=== PATIENT | male | born 1985 | race Caucasian/White ===

== ENCOUNTER 2016-07-07 03:17 | Emergency (ER) | payer SELFPAY ==
[~2016-07-07] VITALS: Ht 170.2 cm; Wt 63.6 kg
[2016-07-07 03:21] VITALS: Ht 170.2 cm; Wt 63.6 kg
--- NOTE | 2016-07-07 03:29 | ERA ---
ER Documentation Chief Complaint Date/Time DATE: 07/07/16 TIME: 03:29 Chief Complaint SUDDEN ONSET (APPROX 30MIN) LEFT FLANK AND TESTICULAR PAIN W/O N/V HPI The patient is a 30-year-old male, presenting to the ER because of sudden onset of left flank pain about an hour prior to arrival, 12/04, radiating down to the left testicle. He denies similar symptoms previously, denies fever, chills, neck pain, chest pain, vomiting, dysuria, diarrhea. He does not drink, smoke a pack a day, smoked marijuana Past medical/surgical history: None ROS All systems reviewed and are negative except as per history of present illness. Medications Home Meds Active Scripts Tamsulosin Hcl* (Flomax*) 0.4 Mg Cap.er.24h, 0.4 MG PO DAILY, #10 CAP Prov:BASSEM PETTIT MD 07/07/16 Hydrocodone/Acetaminophen (Girard 10-325 Tablet) 1 Each Tablet, 1 TAB PO Q6H Y for PAIN, #10 TAB Prov:BASSEM PETTIT MD 07/07/16 Allergies Allergies: Coded Allergies: No Known Drug Allergies (Verified Allergy, Unknown, 07/07/16) PMhx/Soc Medical and Surgical Hx: pt denies Medical Hx, pt denies Surgical Hx Hx Alcohol Use: No Hx Substance Use: Yes (MARIJUANA) Hx Tobacco Use: Yes (DAILY) Smoking Status: Current every day smoker Physical Exam Vitals Vital Signs Date Time Temp Pulse Resp B/P Pulse Ox O2 Delivery O2 Flow Rate FiO2 07/07/16 03:21 95.9 65 18 125/104 100 Physical Exam Const: No acute distress. Head: Atraumatic. Eyes: Normal Conjunctiva. ENT: Normal External Ears, Nose and Mouth. Neck: Full range of motion. No meningismus. Resp: Clear to auscultation bilaterally. Cardio: Regular rate and rhythm, no murmurs. Abd: Soft, non distended, normal bowel sounds, left flank tenderness, no rigidity, rebound, CVA tenderness Skin: No petechiae or rashes. Back: No midline or flank tenderness. Ext: No cyanosis, or edema. Neur: Awake and alert. No focal deficit Psych: Normal Mood and Affect. Genitourinary: Minimal left testicular tenderness Result Diagram: 07/07/16 0345 07/07/16 0345 Results 24 hrs Laboratory Tests Test 07/07/16 03:45 White Blood Count 14.310^3/ul Red Blood Count 4.8510^6/ul Hemoglobin 15.3g/dl Hematocrit 43.2% Mean Corpuscular Volume 89.1fl Mean Corpuscular Hemoglobin 31.5pg Mean Corpuscular Hemoglobin Concent 35.4g/dl Red Cell Distribution Width 11.9% Platelet Count 53877^3/UL Mean Platelet Volume 10.0fl Neutrophils % 52.6% Lymphocytes % 37.6% Monocytes % 6.5% Eosinophils % 2.6% Basophils % 0.3% Nucleated Red Blood Cells % 0.0/100WBC Neutrophils # 7.510^3/ul Lymphocytes # 5.410^3/ul Monocytes # 0.910^3/ul Eosinophils # 0.410^3/ul Basophils # 0.110^3/ul Nucleated Red Blood Cells # 0.010^3/ul Sodium Level 140mmol/L Potassium Level 3.3mmol/L Chloride Level 104mmol/L Carbon Dioxide Level 24mmol/L Anion Gap 15 Blood Urea Nitrogen 19mg/dl Creatinine 0.89mg/dl Glucose Level 127mg/dl Calcium Level 9.6mg/dl Total Bilirubin 1.0mg/dl Direct Bilirubin 0.00mg/dl Indirect Bilirubin 1.0mg/dl Aspartate Amino Transf (AST/SGOT) 17IU/L Alanine Aminotransferase (ALT/SGPT) 29IU/L Alkaline Phosphatase 55IU/L Total Protein 7.4g/dl Albumin 4.4g/dl Globulin 3.00g/dl Albumin/Globulin Ratio 1.46 Lipase 89U/L Current Medications Medications (Trade) Dose Ordered Sig/Michelle Route PRN Reason Start Time Stop Time Status Last Admin Dose Admin Sodium Chloride (NS) 1,000 ml @ 1,000 mls/hr Q1H STAT IV 07/07/16 03:36 07/07/16 04:35 DC 07/07/16 03:42 Hydromorphone HCl (Dilaudid) 1 mg ONCE STAT IV 07/07/16 03:36 07/07/16 03:38 DC 07/07/16 03:41 Ondansetron HCl (Zofran Inj) 4 mg ONCE STAT IV 07/07/16 03:36 07/07/16 03:39 DC 07/07/16 03:41 Hydromorphone HCl (Dilaudid) 1 mg ONCE STAT IV 07/07/16 03:59 07/07/16 04:00 DC 07/07/16 04:03 Procedures/MDM [place] [id number] Radiology Main Line: [phone] DIAGNOSTIC IMAGING REPORT Patient: BONNIE DUQUE : 1985 Age: 30 Sex: M MR #: [id number] DOS: 07/07/16 0336 Ordering MD: BASSEM PETTIT MD Location: E/R Room/Bed: PROCEDURE: ULTRASOUND TESTICULAR CLINICAL INDICATION: 30-year-old male with flank pain. TECHNIQUE: Multiple sonographic images of the scrotal region were obtained utilizing a linear array transducer with grayscale and color-flow and a Doppler imaging. The images were reviewed on a high-resolution PACS workstation. COMPARISON: None. FINDINGS: The right testicle is well visualized and has a normal echotexture. No focal areas of abnormal echogenicity are visualized. The right testicle measures measures 4.4 x 2.3 x 3.1 cm. There is normal color-flow. The right epididymis is visualized and unremarkable in appearance. There is normal color-flow. The left testicle is well visualized and has a normal echotexture. No focal areas abnormal echogenicity are visualized. The left testicle measures measures 4.5 x 2.4 x 3.2 cm. There is normal color-flow. The left epididymis is visualized and is unremarkable in appearance. There is normal color-flow. IMPRESSION: Unremarkable testicular ultrasound. .Tavon Houser MD, Date Time Electronically viewed and signed by .Tavon Houser MD, on 07/07/2016 05:21 .M/ CC: BASSEM PETTIT MD [place] [id number] Radiology Main Line: [phone] DIAGNOSTIC IMAGING REPORT Patient: BONNIE DUQUE : 1985 Age: 30 Sex: M MR #: [id number] [facility] #: [id number] DOS: 07/07/16 0336 Ordering MD: BASSEM PETTIT MD Location: E/R Room/Bed: PROCEDURE: CT ABDOMEN/PELVIS WITHOUT CONTRAST CLINICAL INDICATION: 30-year-old male with abdominal pain. TECHNIQUE: The study was performed utilizing a [email or web address] VCT 64-slice CT scanner. Direct axial sections were obtained through the abdomen and pelvis without the use of intravenous contrast material. Sagittal and coronal reformations were obtained. One or more of the following dose reduction techniques were utilized: automated exposure control, adjustment of the mA and/ or kV according to patient's size or use of iterative reconstruction technique. The images were reviewed on a PACS workstation. CTD/vol = 4.8 mGy; Total Exam DLP = 270.9 mGy-cm. COMPARISON: None. FINDINGS: The lung bases are unremarkable. There is no evidence for significant pleural effusion. The liver has a normal size and contour without focal areas of abnormal density. No intrahepatic nor extrahepatic biliary ductal dilatation is seen. The gallbladder demonstrates no wall thickening nor pericholecystic fluid. No biliary stones are evident. The pancreas is without areas of abnormal attenuation. The spleen is identified and has a normal size without abnormal density. The adrenal glands are unremarkable. The right kidney is without abnormal density, calculi or obstruction. There is mild left-sided hydroureteronephrosis with an obstructing left ureterovesical junction calculus passing into the bladder measuring approximately 3 x 3 mm. The urinary bladder contains urine. There is fecalization of the small bowel with retained stool in the colon without obstruction. The appendix is visualized and is without abnormal thickening or surrounding inflammatory reaction. There is no significant free fluid. The prostate is not enlarged. The aortoiliac vessels are without aneurysmal dilatation. Bilateral L5 pars interarticularis defects are noted. There is mild anterolisthesis of approximately 10% with diffuse L5- S1 disk bulge approximately 7 mm beyond the posterior margin resulting in mild bilateral foraminal stenosis and mild central spinal stenosis. IMPRESSION: 1. Mild left-sided hydroureteronephrosis with an obstructing left ureterovesical junction and 3 x 3 mm calculus. 2. Fecalization of the small bowel and retained stool without gross bowel obstruction. 3. No CT evidence for appendicitis. 4. L5-S1 spondylolisthesis (10%) with diffuse disk bulge. .Tavon Houser MD, Date Time Electronically viewed and signed by .Tavon Houser MD, on 07/07/2016 05:20 .M/ CC: BASSEM PETTIT MD MEDICAL MAKING DECISION: The patient is a 30-year-old male, presenting with acute left ureterolithiasis, acute hypokalemia. He was treated with 1 L amoxicillin for acute clinical dehydration, Dilaudid 1 mg IV 2 for pain and Zofran 4 IV 2 for nausea and potassium chloride 20 mEq p.o. for low potassium with good response. The differential diagnoses considered include but are not limited to cholelithiasis, cholecystitis, cystitis, pancreatitis, hepatitis, gastritis, peptic ulcer disease, gastric ulcer, appendicitis, diverticulitis, cholangitis, choledocholithiasis, partial small bowel obstruction. He is unable to provide a urine specimen Departure Diagnosis: Primary Impression: Ureterolithiasis Additional Impression: Hypokalemia Condition: Good Comments He was discharged with Girard and Flomax I discussed the findings with the patient. I advised the patient to follow-up with the on-call neurologist Dr. Pena In about 1-2 days, sooner if needed and return if any concern. The patient's blood pressure was elevated (>120/80) but appears stable without evidence of hypertension emergency or urgency. The patient was counseled about the risks of hypertension and urged to pursue outpatient monitoring and therapy within a week with their primary care physician. BASSEM PETTIT MD July 07, 2016 03:29
[2016-07-07] MEDS ORDERED: HYDROmorphONE 1 MG/ML SYG IV STA ×2 (03:36→03:59)
[2016-07-07] MEDS ORDERED: SOD CHLORIDE 0.9% 1,000 ML IV STA (03:36)
[2016-07-07] MEDS ORDERED: ONDANSETRON 4 MG INJ IV STA (03:36)
[2016-07-07 04:04] LABS: ADD SCAN DIFF NO
[2016-07-07 04:07] LABS: ABNORMAL IP MESSAGE 1; BASOPHIL # 0.1 10^3/ul (0.0-0.1); BASOPHILS % 0.3 % (0.0-2.0); EOSINOPHILS # 0.4 10^3/ul (0.0-0.5); EOSINOPHILS % 2.6 % (0.0-7.0); HEMATOCRIT 43.2 % (42.0-52.0); HEMOGLOBIN 15.3 g/dl (14.0-18.0); LYMPHOCYTES # 5.4 10^3/ul (0.8-2.9); LYMPHOCYTES % 37.6 % (15.0-51.0); MEAN CORPUSCULAR HEMOGLOBIN 31.5 pg (29.0-33.0); MEAN CORPUSCULAR HGB CONC 35.4 g/dl (32.0-37.0); MEAN CORPUSCULAR VOLUME 89.1 fl (82.0-101.0); MONOCYTE # 0.9 10^3/ul (0.3-0.9); MONOCYTES % 6.5 % (0.0-11.0); NEUTROPHIL # 7.5 10^3/ul (1.6-7.5); NEUTROPHILS % 52.6 % (39.0-77.0); PLATELET COUNT 280 10^3/UL (140-415); RED BLOOD COUNT 4.85 10^6/ul (4.70-6.10); RED CELL DISTRIBUTION WIDTH 11.9 % (11.5-14.5); WHITE BLOOD COUNT 14.3 10^3/ul (4.8-10.8)
[2016-07-07 04:25] LABS: ALBUMIN 4.4 g/dl (3.3-4.9)
[2016-07-07 04:26] LABS: POTASSIUM 3.3 mmol/L (3.5-5.1)
[2016-07-07 04:28] LABS: ALBUMIN/GLOBULIN RATIO 1.46; CALCIUM 9.6 mg/dl (8.4-10.2); CREATININE 0.89 mg/dl (0.61-1.24); TOTAL PROTEIN 7.4 g/dl (6.1-8.1)
--- NOTE | 2016-07-07 05:20 | RADRPT ---
PROCEDURE: CT ABDOMEN/PELVIS WITHOUT CONTRAST CLINICAL INDICATION: 30-year-old male with abdominal pain. TECHNIQUE: The study was performed utilizing a [employer] VCT 64-slice CT scanner. Direct axia l sections were obtained through the abdomen and pelvis without the use of intravenous contrast mate rial. Sagittal and coronal reformations were obtained. One or more of the following dose reduction t echniques were utilized: automated exposure control, adjustment of the mA and/or kV according to pat ient's size or use of iterative reconstruction technique. The images were reviewed on a PACS workst ati-marker. CTD/vol = 4.8 mGy; Total Exam DLP = 270.9 mGy-cm. COMPARISON: None. FINDINGS: The lung bases are unremarkable. There is no evidence for significant pleural effusion. The liver has a normal size and contour without focal areas of abnormal density. No intrahepatic nor extrahepa tic biliary ductal dilatation is seen. The gallbladder demonstrates no wall thickening nor perichole cystic fluid. No biliary stones are evident. The pancreas is without areas of abnormal attenuation. The spleen is identified and has a normal size without abnormal density. The adrenal glands are unr emarkable. The right kidney is without abnormal density, calculi or obstruction. There is mild left -sided hydroureteronephrosis with an obstructing left ureterovesical junction calculus passing into the bladder measuring approximately 3 x 3 mm. The urinary bladder contains urine. There is fecalizat ion of the small bowel with retained stool in the colon without obstruction. The appendix is visual ized and is without abnormal thickening or surrounding inflammatory reaction. There is no significant free fluid. The prostate is not enlarged. The aortoiliac vessels are without aneurysma l dilatation. Bilateral L5 pars interarticularis defects are noted. There is mild anterolisthesis o f approximately 10% with diffuse L5-S1 disk bulge approximately 7 mm beyond the posterior margin res ulting in mild bilateral foraminal stenosis and mild central spinal stenosis. IMPRESSION: 1. Mild left-sided hydroureteronephrosis with an obstructing left ureterovesical junction and 3 x 3 mm calculus. 2. Fecalization of the small bowel and retained stool without gross bowel obstruction. 3. No CT evidence for appendicitis. 4. L5-S1 spondylolisthesis (10%) with diffuse disk bulge. .Tavon Houser MD, MD Date Time Electronically viewed and signed by .Tavon Houser MD, on 07/07/2016 05:20 ./
--- NOTE | 2016-07-07 05:21 | RADRPT ---
PROCEDURE: ULTRASOUND TESTICULAR CLINICAL INDICATION: 30-year-old male with flank pain. TECHNIQUE: Multiple sonographic images of the scrotal region were obtained utilizing a linear arra y transducer with grayscale and color-flow and a Doppler imaging. The images were reviewed on a high -resolution PACS workstation. COMPARISON: None. FINDINGS: The right testicle is well visualized and has a normal echotexture. No focal areas of abnormal echog enicity are visualized. The right testicle measures measures 4.4 x 2.3 x 3.1 cm. There is normal col or-flow. The right epididymis is visualized and unremarkable in appearance. There is normal color-fl ow. The left testicle is well visualized and has a normal echotexture. No focal areas abnormal echogenic ity are visualized. The left testicle measures measures 4.5 x 2.4 x 3.2 cm. There is normal color-fl ow. The left epididymis is visualized and is unremarkable in appearance. There is normal color-flow. IMPRESSION: Unremarkable testicular ultrasound. .Tavon Houser MD, Date Time Electronically viewed and signed by .Tavon Houser MD, on 07/07/2016 05:21 .M/
[2016-07-07] MEDS ORDERED: HYDR-902 PO (05:44)
[2016-07-07] MEDS ORDERED: TAMS-14 PO (05:44)
[2016-07-07 06:05] VITALS: BP 118/90; PULSE 71; RESP 16
== END 2016-07-07 06:07 | disposition home or self-care (01) ==
LOC: E/R 03:17
DX: N20.1 Calculus of ureter (principal); E87.6 Hypokalemia; F17.210 Nicotine dependence, cigarettes, uncomplicated
CPT/HCPCS: 36415; 74176; 76870; 80053; 83690; 85025; 96374; 96375; 99285; J1170; J2405; J7030

== ENCOUNTER 2017-04-03 10:58 | Emergency (ER) | END 2017-04-03 14:17 | disposition home or self-care (01) ==